=== PATIENT | female | born 1985 | race Caucasian/White ===

== ENCOUNTER 2020-01-12 06:57 | Emergency (ER) | payer OTHER ==
[~2020-01-12] VITALS: Ht 157.5 cm; Wt 84.0 kg
[~2020-01-12 06:57] MED LIST: IBUP200T44 PO
--- NOTE | 2020-01-12 07:25 | PHYS DOC ---
Past History Past Medical History: No Pertinent History Past Surgical History: Smoking: Non-smoker Alcohol Use: None Drug Use: None General Adult HPI: HPI: Patient is a 34-year-old female presents to the emergency department for evaluation of lower back pain which has been present for the past week, but gradually worsening. She denies any definite back injury. The pain is located in the middle of her lumbar spine. The pain does not radiate. It is worsened by movement. She has not had any numbness, weakness, incontinence, or saddle anesthesia. She has not had any urinary symptoms, fevers or chills. Other than as stated above, there are no alleviating or exacerbating factors to her symptoms. She states that she has had back problems in the past, and has been diagnosed with "arthritis" in her back. Review of Systems: Review of Systems: Constitutional: Denies fever or chills Eyes: Denies change in visual acuity HENT: Denies nasal congestion or sore throat Respiratory: Denies cough or shortness of breath Cardiovascular: Denies chest pain or edema GI: Denies abdominal pain, nausea, vomiting, bloody stools or diarrhea : Denies dysuria, hematuria, Musculoskeletal: As per HPI Integument: Denies rash Neurologic: Denies headache, focal weakness or sensory changes Heart Score: Risk Factors: Risk Factors: DM, Current or recent (<one month) smoker, HTN, HLP, family history of CAD, obesity. Risk Scores: Score 0 - 3: 2.5% MACE over next 6 weeks - Discharge Home Score 4 - 6: 20.3% MACE over next 6 weeks - Admit for Clinical Observation Score 7 - 10: 72.7% MACE over next 6 weeks - Early Invasive Strategies Allergies: Allergies: Allergies Coded Allergies Type Severity Reaction Last Updated Verified Sulfa (Sulfonamide Antibiotics) Allergy Intermediate 09/19/13 Yes codeine Allergy Intermediate 09/19/13 Yes Physical Exam: PE: PHYSICAL EXAM: CONSTITUTIONAL: Well developed, well nourished HEAD: normocephalic, atraumatic EENT: PERRL, EOMI. Conjunctivae normal color, sclerae non-icteric; moist mucous membranes. NECK: Supple, non-tender; no meningismus. LUNGS: Lungs CTA, breathing even and unlabored. Normal air movement. HEART: Regular rate and rhythm, no murmur CHEST: No deformity; non-tender ABDOMEN: The abdomen is soft, and non-tender, no masses or bruits. EXTREM: Normal ROM; no deformity, no calf tenderness. Normal pulses palpable in all extremities. There is no pedal edema. SKIN: No rash; no diaphoresis NEURO: Alert; normal speech and cognition; CN's grossly intact; strength grossly intact without focal deficit. There is no foot drop, there is no perineal anesthesia, distal sensation is normal, patellar reflexes are 2+ bilaterally. BACK: No CVA TTP. There is tenderness palpation in the mid lumbar spine, in the midline, there is no paraspinal muscle tenderness to palpation. Current Patient Data: Labs: Laboratory Tests Test 01/12/20 07:08 01/12/20 08:34 01/12/20 08:36 01/12/20 08:55 Urine Collection Type Unknown Urine Color Yellow Urine Clarity Clear Urine pH 5.5 Urine Specific [place] 1.015 Urine Protein 100 mg/dl Urine Glucose (UA) >=1000 mg/dL Urine Ketones (Stick) 15 mg/dL Urine Blood Neg Urine Nitrite Neg Urine Bilirubin Neg Urine Urobilinogen Dipstick 0.2 mg/dL Urine Leukocyte Esterase Neg Urine RBC Occ /HPF Urine WBC Occ /HPF Urine Squamous Epithelial Cells Many /LPF Urine Bacteria 0 /HPF Urine Test Negative Glucose (Fingerstick) 388 mg/dL Bedside Venous pH 7.38 Bedside Venous pCO2 36 mmHg Bedside Venous pO2 25 mmHg Venous Blood HCO3 21 mmol/L POC Venous O2 Saturation (Mindi) 43 % Bedside FiO2 21 White Blood Count 9.8 x10^3/uL Red Blood Count 5.26 x10^6/uL Hemoglobin 12.9 g/dL Hematocrit 39.8 % Mean Corpuscular Volume 76 fL Mean Corpuscular Hemoglobin 25 pg Mean Corpuscular Hemoglobin Concent 33 g/dL Red Cell Distribution Width 15.9 % Platelet Count 227 x10^3/uL Neutrophils (%) (Auto) 73 % Lymphocytes (%) (Auto) 20 % Monocytes (%) (Auto) 3 % Eosinophils (%) (Auto) 2 % Basophils (%) (Auto) 1 % Neutrophils # (Auto) 7.2 x10^3uL Lymphocytes # (Auto) 2.0 x10^3/uL Monocytes # (Auto) 0.3 x10^3/uL Eosinophils # (Auto) 0.2 x10^3/uL Basophils # (Auto) 0.1 x10^3/uL Sodium Level 131 mmol/L Potassium Level 5.0 mmol/L Chloride Level 97 mmol/L Carbon Dioxide Level 21 mmol/L Anion Gap 13 Blood Urea Nitrogen 18 mg/dL Creatinine 0.9 mg/dL Estimated GFR (Cockcroft-Gault) 71.3 BUN/Creatinine Ratio 20 Glucose Level 403 mg/dL Calcium Level 9.4 mg/dL Total Bilirubin 0.4 mg/dL Aspartate Amino Transf (AST/SGOT) 28 U/L Alanine Aminotransferase (ALT/SGPT) 59 U/L Alkaline Phosphatase 119 U/L Total Protein 8.3 g/dL Albumin 3.9 g/dL Albumin/Globulin Ratio 0.9 Acetone Level Neg Test 01/12/20 10:53 Glucose (Fingerstick) 279 mg/dL Current Medications Medications (Trade) Dose Ordered Sig/Onesimo Route PRN Reason Start Time Stop Time Status Last Admin Dose Admin Ketorolac Tromethamine (Toradol Im) 60 mg 1X ONCE IM 01/12/20 07:30 01/12/20 07:33 DC 01/12/20 07:44 Cyclobenzaprine HCl (Flexeril) 10 mg 1X ONCE PO 01/12/20 07:30 01/12/20 07:32 DC 01/12/20 07:44 Sodium Chloride 1,000 ml @ 1,000 mls/hr 1X ONCE IV 01/12/20 08:45 01/12/20 09:45 DC 01/12/20 09:55 Sodium Chloride 1,000 ml @ 1,000 mls/hr 1X ONCE IV 01/12/20 08:45 01/12/20 08:39 DC Morphine Sulfate (Morphine 4mg Syringe) 4 mg 1X ONCE IV 01/12/20 09:45 01/12/20 09:49 DC 01/12/20 09:54 Ondansetron HCl (Zofran) 4 mg 1X ONCE IVP 01/12/20 09:45 01/12/20 09:49 DC 01/12/20 09:53 EKG: EKG: [] Radiology/Procedures: Radiology/Procedures: PROCEDURE: LUMBAR SPINE 2-3V LUMBAR SPINE 2-3V History: Reason: back pain / Spl. Instructions: / History: Technique: 3 views lumbar spine. Comparison: None. Findings: Normal alignment. Normal vertebral body height. No fracture. Mild multilevel degenerative disc changes most prominent L2-L3 and L5-S1. Lower lumbar facet arthropathy. Mild leftward curvature of the lumbar spine. Impression: 1. No acute osseous abnormality. 2. Mild multilevel lumbar spondylosis with leftward curvature.[] Course & Med Decision Making: Course & Med Decision Making Pertinent Labs and Imaging studies reviewed. (See chart for details) 11:55 AM: The patient's condition remained stable. I discussed the new d iagnosis of diabetes. She has arranged appointment with her PCP for later this afternoon. [] Patient remains stable. I discussed test results, the need for close follow- up, and return precautions. Dragon Disclaimer: Dragon Disclaimer: This electronic medical record was generated, in whole or in part, using a voice recognition dictation system. Departure Departure: Impression: Primary Impression: Low back pain Additional Impression: Hyperglycemia Disposition: HOME/RESIDENCE PRIOR TO ADM Condition: STABLE Referrals: CORDELIA SANTA MD (PCP) Patient Instructions: 2400 Calorie Diet for Diabetes Meal Planning, Back Pain, Adult, Bromocriptine oral tablets (diabetes), Diabetes, FAQs, Hyperglycemia Additional Instructions: Ibuprofen 400-600 mg every 6 hours may help improve your symptoms. Applying a heating pad to the affected area may help improve your symptoms. The prescribed medications may cause drowsiness-use caution while taking. Further evaluation with a review specialist would be beneficial. Please call [phone] to schedule an appointment to see Dr. Murray. Scripts Metformin Hcl (METFORMIN HCL) 500 Mg Tablet 1 TAB PO BID for -, #60 TAB 0 Refills Prov: RUPERT NULL MD 01/12/20 Cyclobenzaprine Hcl (CYCLOBENZAPRINE HCL) 10 Mg Tablet 1 TAB PO TID PRN for PAIN, #20 TAB Prov: RUPERT NULL MD 01/12/20 Justification of Admission: Justification of Admission: Justification of Admission Dx: N/A RUPERT NULL MD Jan 12, 2020 07:25
[2020-01-12] MEDS ORDERED: KETOROLAC 60 MG/2 ML VIAL. IM ONE (07:30)
[2020-01-12] MEDS ORDERED: CYCLOBENZAPRINE 10 MG TABLET. PO ONE (07:30)
--- NOTE | 2020-01-12 07:48 | RAD ---
LUMBAR SPINE 2-3V History: Reason: back pain / Spl. Instructions: / History: Technique: 3 views lumbar spine. Comparison: None. Findings: Normal alignment. Normal vertebral body height. No fracture. Mild multilevel degenerative disc changes most prominent L2-L3 and L5-S1. Lower lumbar facet arthropathy. Mild leftward curvature of the lumbar spine. Impression: 1. No acute osseous abnormality. 2. Mild multilevel lumbar spondylosis with leftward curvature. Electronically signed by: Dread Duncan DO (01/12/2020 7:45 AM) [id number]
[2020-01-12 08:07] LABS: BACTERIA,URINE 0 /HPF (0-FEW); BILIRUBIN,URINE NEG (NEG); CLARITY,URINE CLEAR; COLOR,URINE YELLOW; GLUCOSE,URINE >=1000 mg/dL (NEG); NITRITE,URINE NEG (NEG); RBC,URINE OCC /HPF (0-2); SQUAMOUS EPITHELIAL CELL,UR MANY /LPF; UROBILINOGEN,URINE 0.2 mg/dL (0.2 mg/dL); WBC,URINE OCC /HPF (0-4)
[2020-01-12 08:17] LABS: U PREG PATIENT NEGATIVE (NEG)
[2020-01-12 08:35] VITALS: BP 152/95
[2020-01-12] MEDS ORDERED: IV NORMAL SALINE 1,000ML 1,000 ML IV ONE ×2 (08:45)
[2020-01-12 09:15] LABS: BASO # 0.1 x10^3/uL (0.0-0.2); BASO % 1 % (0-3); EOS # 0.2 x10^3/uL (0.0-0.7); EOS % 2 % (0-3); HEMATOCRIT 39.8 % (36.0-47.0); HEMOGLOBIN 12.9 g/dL (12.0-15.5); LYMPH % 20 % (24-48); MEAN CORPUSCULAR HEMOGLOBIN 25 pg (25-35); MEAN CORPUSCULAR HGB CONC 33 g/dL (31-37); MEAN CORPUSCULAR VOLUME 76 fL (79-100); MONO # 0.3 x10^3/uL (0.0-1.1); MONO % 3 % (0-9); NEUT # 7.2 x10^3uL (1.8-7.7); NEUT % 73 % (31-73); PLATELET COUNT 227 x10^3/uL (140-400); RED BLOOD COUNT 5.26 x10^6/uL (3.50-5.40); RED CELL DISTRIBUTION WIDTH 15.9 % (11.5-14.5); WHITE BLOOD COUNT 9.8 x10^3/uL (4.0-11.0)
[2020-01-12 09:28] LABS: CALCIUM 9.4 mg/dL (8.5-10.1); CREATININE 0.9 mg/dL (0.6-1.0); GFR 71.3
[2020-01-12 09:34] LABS: ALBUMIN 3.9 g/dL (3.4-5.0); ALBUMIN/GLOBULIN RATIO 0.9 (1.0-1.7); TOTAL BILIRUBIN 0.4 mg/dL (0.2-1.0); TOTAL PROTEIN 8.3 g/dL (6.4-8.2)
[2020-01-12] MEDS ORDERED: ONDANSETRON PF 4 MG/2 ML VIAL. IVP ONE (09:45)
[2020-01-12] MEDS ORDERED: MORPHINE SULFATE 4 MG/ML DISP.SYRIN. IV ONE (09:45)
[2020-01-12] MEDS ORDERED: CYCL-331 PO (10:58)
[2020-01-12] MEDS ORDERED: METF500T16 PO (10:58)
== END 2020-01-12 11:12 | disposition home or self-care (01) ==
LOC: ER 06:57
DX: M54.5 Low back pain (principal); R73.9 Hyperglycemia, unspecified; Z88.2 Allergy status to sulfonamides; Z88.5 Allergy status to narcotic agent
CPT/HCPCS: 36415; 72100; 80053; 81001; 81025; 82010; 82803; 82947; 85025; 96372; 96374; 96375; 99284; J1885; J2270; J2405; J7030

== ENCOUNTER 2021-01-20 08:30 | Emergency (ER) | payer OTHER ==
[~2021-01-20] VITALS: Ht 157.5 cm; Wt 82.6 kg
[~2021-01-20 08:30] MED LIST changes: +CYCL-331 PO; +METF500T16 PO
[2021-01-20] MEDS ORDERED: IV NORMAL SALINE 1,000ML 1,000 ML IV ONE (08:45)
--- NOTE | 2021-01-20 08:59 | PHYS DOC ---
Past History Past Medical History: No Pertinent History Past Surgical History: Smoking: Non-smoker Alcohol Use: None Drug Use: None General Adult EDM: Chief Complaint: HYPERGLYCEMIA HPI: HPI: 35-year-old female presents with elevated blood sugar. The patient is a known diabetic but only on Metformin. She is not regularly taking the Metformin because of the diarrhea side effects being too disruptive to her life. She has been on Metformin for about a year. She tells me that her blood sugar last night was in the 400s. She drank a bunch of water and went to bed. It was 300 prior to going to sleep. She called the clinic at [facility] and they recommended that she come to the ER. Blood sugar on arrival was 250. She has had some dizziness and nausea, but no other significant side effects. She does have frequent urination. Denies fever or chills. Review of Systems: Review of Systems: Constitutional: Denies fever or chills Eyes: Denies change in visual acuity HENT: Denies nasal congestion or sore throat Respiratory: Denies cough or shortness of breath Cardiovascular: Denies chest pain or edema GI: Denies abdominal pain, nausea, vomiting, bloody stools or diarrhea : Denies dysuria Musculoskeletal: Denies back pain or joint pain Integument: Denies rash Neurologic: Denies headache, focal weakness or sensory changes Endocrine: polyuria and polydipsia Lymphatic: Denies swollen glands Psychiatric: Denies depression or anxiety Current Medications: Current Meds: Current Medications Medications (Trade) Dose Ordered Sig/Onesimo Start Time Stop Time Status Last Admin Dose Admin Sodium Chloride 1,000 ml @ 1,000 mls/hr 1X ONCE 01/20/21 08:45 01/20/21 09:44 Allergies: Allergies: Allergies Coded Allergies Type Severity Reaction Last Updated Verified Sulfa (Sulfonamide Antibiotics) Allergy Intermediate 01/12/20 Yes codeine Allergy Intermediate 01/12/20 Yes Physical Exam: PE: Constitutional: Well developed, well nourished, obese, no acute distress, non- toxic appearance. [] HENT: Normocephalic, atraumatic, bilateral external ears normal, oropharynx moist, no oral exudates, nose normal. [] Eyes: PERRLA, EOMI, conjunctiva normal, no discharge. [] Neck: Normal range of motion, no tenderness, supple, no stridor. [] Cardiovascular: Heart rate regular rhythm, no murmur [] Lungs & Thorax: Bilateral breath sounds clear to auscultation [] Abdomen: Bowel sounds normal, soft, no tenderness, no masses, no pulsatile masses. [] Skin: Warm, dry, no erythema, no rash. [] Back: No tenderness, no CVA tenderness. [] Extremities: No tenderness, no cyanosis, no clubbing, ROM intact, no edema. [] Neurologic: Alert and oriented X 3, normal motor function, normal sensory function, no focal deficits noted. [] Psychologic: Affect normal, judgement normal, mood normal. [] Current Patient Data: Labs: Laboratory Tests Test 01/20/21 08:45 Glucose (Fingerstick) 260 mg/dL (70-99) H EKG: EKG: [] Radiology/Procedures: Radiology/Procedures: [] Heart Score: C/O Chest Pain: N/A Risk Factors: Risk Factors: DM, Current or recent (<one month) smoker, HTN, HLP, family history of CAD, obesity. Risk Scores: Score 0 - 3: 2.5% MACE over next 6 weeks - Discharge Home Score 4 - 6: 20.3% MACE over next 6 weeks - Admit for Clinical Observation Score 7 - 10: 72.7% MACE over next 6 weeks - Early Invasive Strategies Course & Med Decision Making: Course & Med Decision Making Pertinent Labs and Imaging studies reviewed. (See chart for details) The patient's labs are significant for an elevated blood sugar of 252. Her anion gap is normal. Her urine is negative for infection. We have given her 1 L of normal saline. I have discussed diabetes with the patient. She understands the importance of being on medication because of her diabetes. [place] appointment as soon as possible so that she can get on a different medication. She is stable for discharge at this time. [] Moises Disclaimer: Moises Disclaimer: This electronic medical record was generated, in whole or in part, using a voice recognition dictation system. Departure Departure: Impression: Primary Impression: Hyperglycemia due to diabetes mellitus Disposition: HOME / SELF CARE / HOMELESS Condition: STABLE Referrals: PCP,UNKNOWN (PCP) Patient Instructions: Hyperglycemia, [id number] ANDRE MCKEON DO Jan 20, 2021 08:59
[2021-01-20 09:06] VITALS: BP 145/97
[2021-01-20 09:06] LABS: BASO # 0.1 x10^3/uL (0.0-0.2); BASO % 1 % (0-3); EOS # 0.2 x10^3/uL (0.0-0.7); EOS % 2 % (0-3); HEMOGLOBIN 12.8 g/dL (12.0-15.5); LYMPH % 25 % (24-48); MEAN CORPUSCULAR HEMOGLOBIN 26 pg (25-35); MEAN CORPUSCULAR HGB CONC 33 g/dL (31-37); MEAN CORPUSCULAR VOLUME 80 fL (79-100); MONO # 0.5 x10^3/uL (0.0-1.1); MONO % 4 % (0-9); NEUT # 8.1 x10^3uL (1.8-7.7); NEUT % 68 % (31-73); PLATELET COUNT 264 x10^3/uL (140-400); RED BLOOD COUNT 4.87 x10^6/uL (3.50-5.40); RED CELL DISTRIBUTION WIDTH 13.9 % (11.5-14.5)
[2021-01-20 09:15] LABS: CALCIUM 9.2 mg/dL (8.5-10.1); CREATININE 0.7 mg/dL (0.6-1.0); GFR 94.7; POTASSIUM 3.6 mmol/L (3.5-5.1)
[2021-01-20 09:16] LABS: BACTERIA,URINE FEW /HPF (0-FEW); BILIRUBIN,URINE NEG (NEG); CLARITY,URINE HAZY; COLOR,URINE YELLOW; GLUCOSE,URINE >=1000 mg/dL (NEG); NITRITE,URINE NEG (NEG); RBC,URINE 0 /HPF (0-2); UROBILINOGEN,URINE 0.2 mg/dL (0.2 mg/dL)
[2021-01-20 09:17] LABS: AMORPHOUS SEDIMENT,UR PRESENT /HPF; SQUAMOUS EPITHELIAL CELL,UR MANY /LPF
[2021-01-20 09:20] LABS: ALBUMIN 3.6 g/dL (3.4-5.0); TOTAL BILIRUBIN 0.5 mg/dL (0.2-1.0); TOTAL PROTEIN 7.2 g/dL (6.4-8.2)
== END 2021-01-20 09:58 | disposition home or self-care (01) ==
LOC: ER 08:30
DX: E11.65 Type 2 diabetes mellitus with hyperglycemia (principal); Z88.2 Allergy status to sulfonamides; Z88.5 Allergy status to narcotic agent
CPT/HCPCS: 36415; 80053; 81001; 82947; 85025; 96360; 99283; J7030